=== PATIENT | male | born 1940 | race Caucasian/White ===

== ENCOUNTER 2023-03-16 17:47 | Emergency (ER) | payer MEDICARE ==
[~2023-03-16] VITALS: Ht 177.8 cm; Wt 90.0 kg
[2023-03-16 17:54] VITALS: BP 126/66
[2023-03-16] MEDS ORDERED: ACETAMINOPHEN 325MG TABLET PO ONE (18:15)
[2023-03-16] MEDS ORDERED: TETANUS, DIPHTHERIA, PERTUSSIS VAC/PF 0.5ML (>10YR OLD) IM ONE (18:15)
[2023-03-16] MEDS ORDERED: BACITRACIN 15GM TUBE TOP ONE (18:15)
[2023-03-16] MEDS ORDERED: BACITRACIN ZINC OINT UDPKT TOP NR (19:00)
== END 2023-03-16 20:58 | disposition home or self-care (01) ==
LOC: ER 17:47
DX: S81.012A Laceration without foreign body, left knee, initial encounter (principal); E78.00 Pure hypercholesterolemia, unspecified; I10 Essential (primary) hypertension; F03.90 Unspecified dementia, unspecified severity, without behavioral disturbance, psychotic disturbance, mood disturbance, and anxiety; W20.8XXA Other cause of strike by thrown, projected or falling object, initial encounter; Y93.89 Activity, other specified; Y92.89 Other specified places as the place of occurrence of the external cause; Y99.8 Other external cause status
CPT/HCPCS: 73560; 90471; 90715; 99283

== ENCOUNTER 2025-09-10 16:44 | Emergency (ER) | payer MEDICARE ==
[2025-09-10] MEDS: ACETAMINOPHEN 500MG TABLET PO ONE (18:06)
[2025-09-10 19:14] VITALS: BP 116/82; PULSE 74; RESP 16; O2SAT 99
== END 2025-09-10 19:16 | disposition home or self-care (01) ==
LOC: ER 16:44
DX: R51.9 Headache, unspecified (principal); I10 Essential (primary) hypertension; E78.00 Pure hypercholesterolemia, unspecified
CPT/HCPCS: 99284